=== PATIENT | male | born 1990 | race Caucasian/White ===

== ENCOUNTER 2017-04-11 09:51 | Emergency (ER) | payer OTHER, MEDICAID ==
[~2017-04-11] VITALS: Ht 177.8 cm; Wt 74.0 kg
[~2017-04-11 09:51] MED LIST: IBUP-1542 PO
[2017-04-11 09:57] VITALS: Ht 177.8 cm; Wt 74.0 kg
[2017-04-11] MEDS ORDERED: DIPHTH/TET/ACEL PERTUSS (ADULT) 0.5 ML VIAL IM* ONE (11:30)
--- NOTE | 2017-04-11 11:31 | ERD ---
ER Documentation Chief Complaint Date/Time DATE: 04/11/17 TIME: 11:29 Chief Complaint LEFT FIRST FINGER NAIL CAME OFF HPI 26-year-old male complains of a left fifth digit laceration after slicing the tip off with a knife while cutting food today. His tetanus is not up-to-date. Denies restricted range of motion weakness or active bleeding. ROS All systems reviewed and are negative except as per history of present illness. Medications Home Meds Active Scripts Ibuprofen* (Motrin*) 600 Mg Tab, 600 MG PO Q6, #20 TAB Prov:SALLY WISE MD 09/30/16 PMhx/Soc Hx Respiratory Disorders: Yes (asthma) Hx Alcohol Use: No Hx Substance Use: No Hx Tobacco Use: No Physical Exam Vitals Vital Signs Date Time Temp Pulse Resp B/P Pulse Ox O2 Delivery O2 Flow Rate FiO2 04/11/17 09:57 97.5 61 18 129/78 97 Physical Exam Const: [] Alert, not Head: Atraumatic Eyes: Normal Conjunctiva ENT: Normal External Ears, Nose and Mouth. Neck: Full range of motion..~ No meningismus. Resp: Clear to auscultation bilaterally Cardio: Regular rate and rhythm, no murmurs Abd: Soft, non tender, non distended. Normal bowel sounds Skin: No petechiae or rashes. There is an avulsion off the tip of the left fifth digit involving the very distal portion of the fingernail. The superficial does not penetrate the depth of the bone. No restricted range of motion or deficits appreciated. There is no active bleeding. The avulsion is approximately 0.5 x 0.5 cm Back: No midline or flank tenderness Ext: No cyanosis, or edema Neur: Awake and alert Psych: Normal Mood and Affect Results 24 hrs Current Medications Medications (Trade) Dose Ordered Sig/Paul Route PRN Reason Start Time Stop Time Status Last Admin Dose Admin Diphtheria/ Tetanus/Acell Pertussis (Adacel) 0.5 ml ONCE ONCE IM* 04/11/17 11:30 04/11/17 11:31 Procedures/MDM Patient presents with an avulsion of the tip of left fifth digit without signs or symptoms to suggest open fracture, tendon or neurologic deficit or infection. Wound was irrigated with normal saline copiously and Surgicel was applied and wound dressing was applied. Patient was given a tetanus booster. Patient was discharged home with instructions for wound care instructions for wound check in 2-3 days, order return sooner for fevers, redness, new symptoms. Departure Diagnosis: Primary Impression: Finger laceration Encounter type: initial encounter Qualified Code: S61.219A - Finger laceration, initial encounter Condition: Stable Patient Instructions: Laceration, Small/Superficial, Not Sutured Additional Instructions: Recheck for redness, fevers, new symptoms. Nail tip may have small deformity. Take ibuprofen or Tylenol for pain. Recommend wound check in 2-3 days SALLY WISE MD Apr 11, 2017 11:31
== END 2017-04-11 11:45 | disposition home or self-care (01) ==
LOC: FTE 09:51
DX: S61.217A Laceration without foreign body of left little finger without damage to nail, initial encounter (principal); J45.909 Unspecified asthma, uncomplicated; W26.0XXA Contact with knife, initial encounter; Y92.9 Unspecified place or not applicable; Z23 Encounter for immunization
CPT/HCPCS: 90471; 90715